=== PATIENT | male | born 1990 | race Two or more races ===

== ENCOUNTER 2022-08-31 14:15 | Emergency (ER) | payer OTHER ==
[2022-08-31] MEDS ORDERED: Acetaminophen 500 MG Tab PO ONE (14:37)
[2022-08-31] MEDS ORDERED: Ibuprofen 800 MG Tab PO ONE (14:37)
[2022-08-31] MEDS ORDERED: Iopamidol 755 Mg/ML 100 ML Bottle IV ONE (15:52)
== END 2022-08-31 16:28 | disposition home or self-care (01) ==
LOC: FB.ED 14:15
DX: S83.91XA Sprain of unspecified site of right knee, initial encounter (principal); V43.62XA Car passenger injured in collision with other type car in traffic accident, initial encounter
CPT/HCPCS: 73562; 99284; A9270